=== PATIENT | female | born 1950 | race Caucasian/White ===

== ENCOUNTER → 2016-11-29 | Outpatient (CLI) | payer OTHER | LOC: FIMAGING 10:04 | DX: Z12.31 Encounter for screening mammogram for malignant neoplasm of breast (principal) | CPT/HCPCS: G0202 ==

== ENCOUNTER 2017-04-24 22:57 | Emergency (ER) | payer OTHER ==
[2017-04-24 23:03] VITALS: O2SAT 92
[2017-04-24] MEDS ORDERED: ONDANSETRON 4 MG/2 ML VIAL IVP ONE (23:23)
[2017-04-24] MEDS ORDERED: HYDROmorphONE/DILAUDID 1 MG/ML INJ IVP ONE (23:23)
[2017-04-24 23:32] LABS: COLOR YELLOW; LEUKOCYTE ESTERASE,URINE NEGATIVE (NEGATIVE); NITRITE,URINE NEGATIVE (NEGATIVE)
[2017-04-24 23:38] LABS: MUCUS TRACE /lpf (NONE-1+); RBC,URINE 50-182 /hpf (0-3); YEAST PRESENT /hpf (NONE SEEN)
[2017-04-24] MEDS ORDERED: NS 1,000 ML IV ONE (23:41)
--- NOTE | 2017-04-24 23:44 | EDPHY ---
H & P Stated Complaint: left sided flank pain x2 hours, N/V Time Seen by Provider: 04/24/17 23:36 HPI/ROS: CHIEF COMPLAINT: Left inguinal pain HISTORY OF PRESENT ILLNESS: The patient is a 67-year-old female who complains of sudden severe left flank and inguinal pain that began about an hour ago. She has vomited as well. She has a history of kidney stones and states that this feels similar but it has been many years since her previous one. She has a history of lupus and hypertension. She is not on any immunosuppressants. The pain waxes and wanes. REVIEW OF SYSTEMS: Constitutional: denies: chills, fever, recent illness, recent injury EENTM: denies: blurred vision, double vision, nose congestion Respiratory: denies: cough, shortness of breath Cardiac: denies: chest pain, irregular heart rate, lightheadedness, palpitations Gastrointestinal/Abdominal: See HPI denies: diarrhea, blood streaked stools Genitourinary: denies: dysuria, frequency, hematuria, pain Musculoskeletal: denies: joint pain, muscle pain Skin: denies: lesions, rash, jaundice, bruising Neurological: denies: headache, numbness, paresthesia, tingling, dizziness, weakness Hematologic/Lymphatic: denies: blood clots, easy bleeding, easy bruising Immunologic/allergic: denies: HIV/AIDS, transplant EXAM: GENERAL: Well-appearing, obese and in no acute distress. HEAD: Atraumatic, normocephalic. EYES: Pupils equal round and reactive to light, extraocular movements intact, sclera anicteric, conjunctiva are normal. ENT: TMs normal, nares patent, oropharynx clear without exudates. Moist mucous membranes. NECK: Normal range of motion, supple without lymphadenopathy or JVD. LUNGS: Breath sounds clear to auscultation bilaterally and equal. No wheezes rales or rhonchi. HEART: Regular rate and rhythm without murmurs, rubs or gallops. ABDOMEN: Soft, nontender, normoactive bowel sounds. No guarding, no rebound. No masses appreciated. BACK: No CVA tenderness, no spinal tenderness, step-offs or deformities EXTREMITIES: Normal range of motion, no pitting or edema. No clubbing or cyanosis. NEUROLOGICAL: Cranial nerves II through XII grossly intact. Normal speech, normal gait. 5/5 strength, normal movement in all extremities, normal sensation PSYCH: Normal mood, normal affect. SKIN: Warm, dry, normal turgor, no visible rashes or lesions. Source: Patient Exam Limitations: No limitations - Personal History Current Tetanus/Diphtheria Vaccine: Yes Current Tetanus Diphtheria and Acellular Pertussis (TDAP): Yes Tetanus Vaccine Date: 2011 - Medical/Surgical History Hx Asthma: No Hx Chronic Respiratory Disease: No Hx Diabetes: No Hx Cardiac Disease: Yes Hx Renal Disease: No Hx Cirrhosis: No Hx Alcoholism: No Hx HIV/AIDS: No Hx Splenectomy or Spleen Trauma: No Other PMH: lung tumors, arthritis, SLE, lupus, hypothyroid, HTN - Family History Significant Family History: No pertinent family hx - Social History Smoking Status: Former smoker Alcohol Use: Sober Drug Use: None Constitutional: Initial Vital Signs Temperature (C) 37.0 C 04/24/17 22:58 Heart Rate 124 H 04/24/17 22:58 Respiratory Rate 18 04/24/17 22:58 Blood Pressure 156/103 H 04/24/17 22:58 O2 Sat (%) 92 04/24/17 22:58 O2 Delivery Mode Room Air Allergies/Adverse Reactions: Beta-Blockers (Beta-Adrenergic Bloc Allergy (Unknown, Verified 04/24/17 23:04) Unknown nystatin Allergy (Verified 04/24/17 23:04) prednisone Allergy (Verified 04/24/17 23:04) Home Medications: Medication Instructions Recorded Acetaminophen [Tylenol ES 500 mg 500 mg PO Q6 PRN 02/19/15 (*)] Atorvastatin Calcium [Lipitor 40 40 mg PO DAILY 02/19/15 mg (*)] Cetirizine [ZyrTEC 10 mg (*)] 10 mg PO DAILY PRN 02/19/15 Cholecalciferol Vit D3 [Vitamin D3 2,000 unit PO DAILY 02/19/15 (*)] Docusate Sodium [Colace 100 MG (*)] 100 mg PO DAILY PRN 02/19/15 Glucosam/Chondr/Collagn/Hyalur 1 cap PO DAILY 02/19/15 [Glucosamine & Chondroitin Cap] Hydrocodone/Acetaminophen [[place] 1 - 2 tab PO Q4 PRN 02/19/15 5/325 (*)] Ibuprofen [Advil] 200 mg PO Q6 PRN 02/19/15 Levothyroxine [Synthroid 100 mcg 100 mcg PO DAILY 02/19/15 (*)] Pantoprazole Sodium [Protonix 40mg 40 mg PO DAILY 02/19/15 (*)] Potassium 99 mg PO DAILY 02/19/15 Valsartan/Hydrochlorothiazide 1 tab PO DAILY 02/19/15 [Valsartan-Hctz 320-25 mg Tab] Venlafaxine Xr [Effexor Xr] 150 mg PO DAILY 02/19/15 celeCOXIB [Celebrex (*)] 200 mg PO DAILY 02/19/15 traMADol [Ultram 50 mg (*)] 50 mg PO DAILY 02/19/15 HYDROmorphone HCL [Dilaudid 2 mg 2 mg PO Q4 PRN #20 tab 02/23/15 (*)] Ondansetron Odt [Zofran Odt 4 mg 4 mg PO Q4 PRN #14 tab 02/23/15 (*)] Sennosides/Docusate Sodium 1 - 2 tab PO BID #0 tab 02/23/15 [Senokot-S] cefTRIAXone 1 GM/DEXTROSE 50 ml IV DAILY #0 bag 02/23/15 [Rocephin 1 gm (Premix)] Ketorolac Tromethamine [Toradol] 10 mg PO Q6H #16 tab 04/25/17 Ondansetron Odt [Zofran Odt 4 mg 4 mg PO Q4 PRN #10 tab 04/25/17 (RX)] Tamsulosin HCl [Flomax] 0.4 mg PO DAILY #10 cap 04/25/17 oxyCODONE/APAP 5/325 [Percocet 1 - 2 tab PO Q4H PRN #10 tab 04/25/17 5/325] Medical Decision Making ED Course/Re-evaluation: The patient is laying prone so she is somewhat difficult to examine. Her pain is currently weaning. We will attempt again to get an IV and treat her with pain medication. I have ordered lab work and a CT scan. She does have blood in her urine. 12:30 p.m. we discussed the CT results which are reassuring. The patient is completely asymptomatic and currently is eager to go home. I will give her prescriptions because she will likely pass the other stones at some point. I will also give her follow up with Urology. Her agrees with this plan. Differential Diagnosis: Partial list of the Differential diagnosis considered include but were not limited to; kidney stone, urinary tract infection and although unlikely based on the history and physical exam, I also considered constipation, diverticulitis , hernia, dissection. - Data Points Laboratory Results: Laboratory Results 04/25/17 00:11 04/24/17 23:47 Medications Given: Discontinued Medications Hydromorphone HCl (Dilaudid) 1 mg IVP EDNOW ONE Stop: 04/24/17 23:24 Last Admin: 04/24/17 23:47 Dose: 1 mg Sodium Chloride (Ns) 1,000 mls @ 0 mls/hr IV EDNOW ONE; Wide Open PRN Reason: Protocol Stop: 04/24/17 23:42 Last Admin: 04/24/17 23:45 Dose: 1,000 mls Ondansetron HCl (Zofran) 4 mg IVP EDNOW ONE Stop: 04/24/17 23:24 Last Admin: 04/24/17 23:47 Dose: 4 mg Departure - Departure Disposition: Home, Routine, Self-Care Clinical Impression: Kidney stone on left side Condition: Fair Instructions: Kidney Stones (ED) Referrals: Joan Clayton MD [Primary Care Provider] - As per Instructions Taryn Manzo MD [Medical Doctor] - As per Instructions Prescriptions: Ketorolac Tromethamine [Toradol] 10 mg PO Q6H #16 tab Ondansetron Odt [Zofran Odt 4 mg (RX)] 4 mg PO Q4 PRN #10 tab PRN Reason: Nausea & Vomiting oxyCODONE/APAP 5/325 [Percocet 5/325] 1 - 2 tab PO Q4H PRN #10 tab PRN Reason: Pain, Severe Tamsulosin HCl [Flomax] 0.4 mg PO DAILY #10 cap
[2017-04-25 00:11] LABS: ALANINE AMINOTRANSFERASE 31 IU/L (9-52); ALBUMIN 4.6 g/dL (3.5-5.0); ALKALINE PHOSPHATASE 89 IU/L (38-126); ASPARTATE AMINOTRANSFERASE 29 IU/L (14-46); BILIRUBIN,TOTAL 0.5 mg/dL (0.1-1.4); BILIRUBIN-CONJUGATED 0.4 mg/dL (0.0-0.5); BILIRUBIN-UNCONJUGATED 0.1 mg/dL (0.0-1.1); CALCIUM 9.8 mg/dL (8.5-10.4); CARBON DIOXIDE 20 mEq/l (22-31); CHLORIDE 100 mEq/L (97-110); CREATININE 0.8 mg/dL (0.6-1.0); GLOMERULAR FILTRATION RATE > 60; GLUCOSE 150 mg/dL (70-100); POTASSIUM 3.9 mEq/L (3.5-5.2); TOTAL PROTEIN 7.6 g/dL (6.3-8.2)
[2017-04-25 00:23] LABS: % IMMATURE GRANULYOCYTES 0.1 % (0.0-1.1); ABSOLUTE IMMATURE GRANULOCYTES 0.01 10^3/uL (0.00-0.10); ADD DIFF? NO; ADD MORPH? NO; ADD SCAN? NO; ATYPICAL LYMPHOCYTE FLAG 0 (0-99); FRAGMENT RBC FLAG 0 (0-99); HEMATOCRIT 40.6 % (38.0-47.0); HEMOGLOBIN 13.6 g/dL (12.6-16.3); LEFT SHIFT FLG 0 (0-99); LIPEMIA HEMOLYSIS FLAG 80 (0-99); MEAN CELL HEMOGLOBIN 32.7 pg (27.9-34.1); MEAN CELL HEMOGLOBIN CONCENTR. 33.5 g/dL (32.4-36.7); MEAN CELL VOLUME 97.6 fL (81.5-99.8); MEAN PLATELET VOLUME 9.7 fL (8.7-11.7); PLATELET CLUMPS FLAG 10 (0-99); PLATELET COUNT 233 10^3/uL (150-400); RED BLOOD CELL COUNT 4.16 10^6/uL (4.18-5.33); RED CELL DISTRIBUTION WIDTH 11.8 % (11.5-15.2)
[2017-04-25 00:44] VITALS: BP 100/64; PULSE 88; RESP 14; TEMP 98.2
[2017-04-25 01:44] LABS: ANION GAP 17 mEq/L (8-16); SODIUM 140 mEq/L (134-144)
== END 2017-04-25 00:44 | disposition home or self-care (01) ==
DX: N20.0 Calculus of kidney (principal); I10 Essential (primary) hypertension; E86.9 Volume depletion, unspecified; Z87.891 Personal history of nicotine dependence
CPT/HCPCS: 74176; 96361; 96374; 99285; J1170; J2405

== ENCOUNTER → 2017-05-23 | Outpatient (CLI) | payer OTHER | LOC: FIMAGING 13:18 | PROVIDERS: ATTEND Internal Medicine | DX: S92.504D Nondisplaced unspecified fracture of right lesser toe(s), subsequent encounter for fracture with routine healing (principal) ==

== ENCOUNTER → 2017-12-26 | Outpatient (CLI) | payer OTHER | LOC: FIMAGING 08:00 | PROVIDERS: ATTEND Obstetrics & Gynecology Gynecology | DX: Z12.31 Encounter for screening mammogram for malignant neoplasm of breast (principal) ==

== ENCOUNTER → 2018-01-17 | Outpatient (CLI) | payer OTHER | LOC: FIMAGING 12:21 | PROVIDERS: ATTEND Internal Medicine | DX: M79.89 Other specified soft tissue disorders (principal); M25.571 Pain in right ankle and joints of right foot ==

== ENCOUNTER → 2018-06-18 | Outpatient (CLI) | payer OTHER | LOC: BHFA 10:15 | PROVIDERS: ATTEND Internal Medicine Cardiovascular Disease | DX: I10 Essential (primary) hypertension (principal); E78.5 Hyperlipidemia, unspecified; Z79.899 Other long term (current) drug therapy ==

== ENCOUNTER → 2018-09-25 | Outpatient (CLI) | payer OTHER ==
[~2018-09-25] MED LIST: IOHEXOL 300 mgI/ML (OMNIPAQUE) 150 ML BTL IV ONE
== END ==
LOC: FIMAGING 09:13
PROVIDERS: ATTEND Internal Medicine
DX: R91.1 Solitary pulmonary nodule (principal); K44.9 Diaphragmatic hernia without obstruction or gangrene; N20.0 Calculus of kidney; Z90.89 Acquired absence of other organs
CPT/HCPCS: 74177; Q9967; 82565-PO

== ENCOUNTER → 2019-01-06 | Outpatient (CLI) | payer OTHER | LOC: FIMAGING 10:10 | PROVIDERS: ATTEND Internal Medicine | DX: Z12.31 Encounter for screening mammogram for malignant neoplasm of breast (principal) ==

== ENCOUNTER → 2019-02-06 | Outpatient (CLI) | payer OTHER | LOC: FCPNEURO 20:00 ==